=== PATIENT | female | born 1990 | race Caucasian/White ===

== ENCOUNTER → 2020-07-06 13:40 | Outpatient (CLI) | payer OTHER, MEDICAID, SELFPAY ==
[2020-07-06 13:49] LABS: Bacteria Urine None Seen; WBC Urine None Seen (0-5/HPF)
[2020-07-06 15:16] LABS: HCG Quantitative /Beta subunit < 2.4 mIU/mL
[2020-07-06 15:34] LABS: Appearance Urine UA CLEAR; Bilirubin Urine UA NEGATIVE (NEGATIVE); Color Urine UA YELLOW; Glucose Urine UA NEGATIVE (Negative); Ketones Urine UA NEGATIVE (NEGATIVE); Leukocyte Esterase Urine UA NEGATIVE (NEGATIVE); Nitrite Urine UA NEGATIVE (Negative); Occult Blood Urine UA 1+ (Negative); Protein Urine UA NEGATIVE (Negative); Urobilinogen Urine UA 0.2 E.U./dL (0.2)
[2020-07-06 15:42] LABS: Culture Indicated Urine Cult Not Indicated; RBC Urine 1-5/HPF (0-5/HPF); Sperm Urine PRESENT; Squamous Epithelial Cell Urine 1-5 /HPF (0-5/HPF)
== END ==
PROVIDERS: Referring Provider Obstetrics & Gynecology; Visit Provider Obstetrics & Gynecology
DX: N92.0 Excessive and frequent menstruation with regular cycle (principal); M54.5 Low back pain; R35.0 Frequency of micturition
CPT/HCPCS: 36415; 81001; 84702